=== PATIENT | male | born 1960 | race Caucasian/White ===

== ENCOUNTER 2023-05-19 13:39 | Outpatient (OUT) | payer OTHER, SELFPAY ==
--- NOTE | 2023-05-19 15:07 | P.CN_ITS ---
Consult Note: HPI Data of Consult Patient: new to practice Consult date: 05/19/23 Requesting Physician: Aniket Mcgowan MD Primary Care Provider: JESSI WILLIAM Consult Narrative Reason for consult: Bilateral upper extremity pain, numbness and tingling Narrative: this is a pleasant 63-year-old gentleman who presents for evaluation. He notes progressively worsening pain and numbness and tingling into the bilateral upper extremities. This is been ongoing for years, but continues to worsen. He recently completed physical therapy for six weeks, which did not provide lasting relief. He utilizes tliz-xra-shdnhrm pain medicines as needed, but this does not provide relief. he underwent cervical MRI, which is significant for multilevel stenosis, worst at C5/6 and C6-C7. He otherwise denies medication side effects loss of bowel or bladder control. cc:: CC: Aniket Mcgowan MD Review of Systems ROS Status of ROS 10 or more systems reviewed and unremarkable except as noted in history and below Exam Constitutional Common normals: no apparent distress, oriented x3 and healthy appearing Neck & C-Spine Other: mild tenderness to palpation throughout the cervical spine and paraspinal muscles which are. Strength is noted to be unremarkable throughout bilateral upper extremities. Sensation noted to be unremarkable throughout the bilateral upper extremities except for dysesthesia into the bilateral C5, C6, C7 d ermatomal distributions. Coordination remains intact. Gait remains nonantalgic. Respiratory Common normals: normal respiratory effort Effort & inspection: able to speak in complete sentences Extremity Common normals: normal to inspection Neuro Common normals: oriented x3, CN's II-XII intact bilaterally and no focal motor deficits Psych Common normals: mental status grossly normal and cooperative Assessment and Plan Assessment and Plan (1) Cervical stenosis of spinal canal: (2) Cervical radiculopathy: (3) Cervical disc displacement: Plan this is a pleasant 63-year-old gentleman who presents for evaluation. He has failed physical and medical modalities, as above. his cervical imaging was reviewed, as noted above. Given his symptomatology and imaging findings, coupled with his failure to respond to physical therapy for six weeks, it is prudent to attempt bilateral C5-C6 transfemoral epidural steroid injections to provide analgesia. Depending on his response, he may benefit from bilateral C6-C7 transforaminal epidural steroid injection. He is in agreement with this plan. Medications were reviewed. I will have him trial gabapentin 300 mg daily at bedtime. He expressed understanding. He will follow-up after the procedure is completed.
== END 2023-05-19 13:40 | disposition home or self-care (01) ==
PROVIDERS: PCP Family Medicine; Visit Provider Anesthesiology
DX: M54.12 Radiculopathy, cervical region (principal); M50.20 Other cervical disc displacement, unspecified cervical region; M48.02 Spinal stenosis, cervical region
CPT/HCPCS: G0463

== ENCOUNTER 2023-06-02 10:22 | Day surgery (SDC) | payer OTHER, SELFPAY ==
[2023-06-02 11:00] VITALS: BP 134/88; PULSE 98; RESP 16; TEMP 36.2; O2SAT 95
[2023-06-02 11:39] VITALS: BP 134/88; PULSE 98; RESP 18; O2SAT 98
[2023-06-02] MEDS: BUPIVACAINE HCL 0.25% PF 25 MG/10 ML VIAL 2 ML INJ (11:42)
[2023-06-02] MEDS: DEXAMETHASONE SODIUM PHOSPHATE 10 MG/ML VIAL INJ (11:43)
[2023-06-02] MEDS: IOHEXOL 240 MG/ML - 10 ML VIAL INJ (11:43)
[2023-06-02] MEDS: LIDOCAINE HCL 2% PF 100 MG/5 ML VIAL 3 ML INJ (11:43)
[2023-06-02 11:44] VITALS: BP 124/66; PULSE 80; RESP 20; O2SAT 96
--- NOTE | 2023-06-02 11:46 | W.PM.PROCNOT ---
Date of procedure: 06/02/23 Pre-op diagnosis: M54.12 Post-op diagnosis: same as pre-op Procedure: Procedure: Bilateral C5-6 transforaminal epidural steroid injection Medications: Bupivacaine 0.25% 3cc, dexamethasone 10mg The patient was seen and examined in the preoperative holding area.? Informed consent was obtained and placed on the chart.? Patient was brought to the medical procedure unit and placed in the prone position where a timeout was completed verifying the correct patient, procedure site, position, and planned special equipment using sterile aseptic technique.? Under direct fluoroscopic visualization a 25-gauge Quincke tipped spinal needle was advanced at level left C5-6 to the designated neural foramen where contrast dye was injected to show adequate spread.? There was no evidence of vascular or adverse uptake.? Epidural spread was appreciated.? The above-mentioned injectate was then placed in a 1.5 mL aliquot preceded by negative aspiration.? The needle was removed. The same procedure, at the same level, was completed on the opposite side. ? Patient was taken to the postprocedural recovery area and monitored for an appropriate length of time before found suitable for discharge in the accompaniment of a responsible adult. Anesthesia: Local Surgeon: Aniket Mcgowan Pathology: none sent Condition: stable Disposition: no change
== END 2023-06-02 11:50 | disposition home or self-care (01) ==
PROVIDERS: PCP Family Medicine; Visit Provider Anesthesiology
DX: M54.12 Radiculopathy, cervical region (principal)
CPT/HCPCS: 64479; 64480; J1100; Q9966

== ENCOUNTER 2023-06-16 07:56 | Day surgery (SDC) | payer OTHER, SELFPAY ==
[2023-06-16 08:18] VITALS: BP 130/79; PULSE 73; RESP 14; TEMP 36.5; O2SAT 97
[2023-06-16] MEDS: BUPIVACAINE HCL 0.25% PF 25 MG/10 ML VIAL INJ (08:55)
[2023-06-16] MEDS: LIDOCAINE HCL 2% PF 100 MG/5 ML VIAL INJ (08:56)
[2023-06-16] MEDS: IOHEXOL 240 MG/ML - 10 ML VIAL INJ (08:56)
[2023-06-16] MEDS: DEXAMETHASONE SODIUM PHOSPHATE 10 MG/ML VIAL INJ (08:56)
--- NOTE | 2023-06-16 08:58 | W.PM.PROCNOT ---
Date of procedure: 06/16/23 Pre-op diagnosis: M54.12 Post-op diagnosis: same as pre-op Procedure: Procedure: Bilateral C6-7 transforaminal epidural steroid injection Medications: Bupivacaine 0.25% 2cc, dexamethasone 10mg The patient was seen and examined in the preoperative holding area.? Informed consent was obtained and placed on the chart.? Patient was brought to the medical procedure unit and placed in the prone position where a timeout was completed verifying the correct patient, procedure site, position, and planned special equipment using sterile aseptic technique.? Under direct fluoroscopic visualization a 25-gauge Quincke tipped spinal needle was advanced at level left C6-7 to the designated neural foramen where contrast dye was injected to show adequate spread.? There was no evidence of vascular or adverse uptake.? Epidural spread was appreciated.? The above-mentioned injectate was then placed in a 1.5 mL aliquot preceded by negative aspiration.? The needle was removed. The same procedure, at the same level, was completed on the opposite side. ? Patient was taken to the postprocedural recovery area and monitored for an appropriate length of time before found suitable for discharge in the accompaniment of a responsible adult. Anesthesia: Local Surgeon: Aniket Mcgowan Pathology: none sent Condition: stable Disposition: no change
[2023-06-17 10:43] VITALS: BP 118/77; BP 121/76; PULSE 68; PULSE 71; RESP 18; O2SAT 95; O2SAT 98
== END 2023-06-16 09:01 | disposition home or self-care (01) ==
PROVIDERS: PCP Family Medicine; Visit Provider Anesthesiology
DX: M54.12 Radiculopathy, cervical region (principal)
CPT/HCPCS: 64479; 64634; J1100; Q9966

== ENCOUNTER 2023-07-02 07:49 | Outpatient (OUT) | payer OTHER, SELFPAY ==
--- NOTE | 2023-07-02 07:57 | PM.CN ---
Consult Note: HPI Data of Consult Patient: known to practice within the last 3 years Requesting Physician: Reyna Monreal NP Primary Care Provider: JESSI WILLIAM Consult Narrative Reason for consult: JOE f/u Narrative: Vinicio Mckay a pleasant 63 year old male presents for evaluation of chronic neck pain with radiculopathy. Patient recently underwent two bilateral TFESI, one at C5-6 the next at C6-7. As a result of the procedures the patient has noticed approximately 25% pain relief and functional improvement, pain is not as severe Today rating pain /10 Has been taking gabapentin 300mg HS with cc:: CC: Reyna Monreal NP Review of Systems ROS Status of ROS 10 or more systems reviewed and unremarkable except as noted in history and below Musculoskeletal Reports: neck pain PFSH PFSH Medical History Surgical History Meds Home Medications and Allergies Home Medications Medication Instructions Recorded Confirmed Type alprazolam 0.5 mg tablet 0.5 mg PO .hs 05/26/23 06/16/23 History aspirin 81 mg tablet,delayed 81 mg PO DAILY 05/26/23 06/16/23 History release bupropion HCl 150 mg tablet,12 hr 150 mg PO QDAY 05/26/23 06/16/23 History sustained-release gabapentin 300 mg capsule 300 mg PO .HS 05/26/23 06/16/23 History lisinopril 20 mg tablet 20 mg PO .QD 05/26/23 06/16/23 History magnesium 200 mg tablet 400 mg PO BID 05/26/23 06/16/23 History nitroglycerin 0.4 mg sublingual 0.4 mg sublingual Q5M 05/26/23 06/16/23 History tablet prasugrel 10 mg tablet 10 mg PO .QD 05/26/23 06/16/23 History rosuvastatin 20 mg tablet 10 mg PO .QD 05/26/23 06/16/23 History Allergies Allergy/AdvReac Type Severity Reaction Status Date / Time No Known Drug Allergies Allergy Verified 06/16/23 08:17 Exam Constitutional Documenting provider has reviewed patient's vital signs: yes Common normals: no apparent distress, oriented x3, healthy appearing, alert and well nourished General appearance: cooperative HENME Common normals: normocephalic, hearing grossly normal bilaterally and moist oral mucous membranes Head and scalp: normocephalic Eye Common normals: PERRL Pupil: PERRL Neck & C-Spine Common normals: full ROM General: normal visual inspection Cervical spine: pain with cervical ROM Chest Common normals: inspection of chest normal Respiratory Common normals: normal respiratory effort, no retractions and no use of accessory muscles Neuro Common normals: oriented x3, CN's II-XII intact bilaterally, moves all extremities, no focal motor deficits, no sensory deficits noted and deep tendon reflexes 2+ bilaterally Sensorium/orientation: alert Motor exam: strength 5/5 throughout and no movement abnormalities noted Other: severe numbness tingling to bilateral hands and fingers but greatly improved in bilateral arms and first two digits. Psych Common normals: mental status grossly normal, thought process normal, cooperative, affect normal, speech normal and activity/motor behavior normal Speech: normal speech Thought process: normal thought process Results Additional Findings Additional findings: MRI consistent with cervical stenosis with radiculopathy and symptom presentation patient failed PT I have checked an OAR[place] report on this patient today and there are no aberrancies noted in the prescribing history.?? A drug screen was completed and reviewed within the last year, and if there has not been a drug screen completed we ordered one today to monitor higher risk, state monitored pain medication use. As part of providing excellent, safe, comprehensive care, the following was completed at our patient's visit: 1. A medication reconciliation and review to ensure accurate knowledge of current/active medications, including asking our patients to inform us about any rbnu-fuq-kvwrqtl medications or herbal remedies/nutritional supplements/alternative remedies. 2. A review to specifically ensure our patients have had annual screening for: elevated body mass index (BMI), tobacco use, screening for depression, and screening for unhealthy alcohol use. When screening is concerning, patients are provided with education and the specific recommendation to discuss the concerning health issue and treatment options with their primary care provider. Assessment and Plan Assessment and Plan (1) Cervical radiculopathy: Assessment and Plan: Patient feels the series of epidurals increased functional improvement and provided >50% pain relief. Continues to have severe numbness and tingling in bilateral hands worse at the last two digits, first three digits greatly improved (2) Cervical disc displacement: (3) Cervical stenosis of spinal canal: (4) Chronic anticoagulation: (5) Obesity: Assessment and Plan: The patient was counseled that proper dietary changes and consistent participation in a home exercise plan can lead to weight loss. Weight loss can help to improve functionality in patients with chronic pain.? Plan increase gabapentin to 300mg BID for 2 weeks, if needed at that time increase to 300mg TID call for refills continue tylenol as needed patient considering chiropractor not interested in surgical consult continue HEP avoid NSAIDs with chronic blood thinners f/u 1 month to discuss medication titration, consider repeat JOE in the future
== END 2023-07-02 07:50 | disposition home or self-care (01) ==
LOC: PM 07:50
PROVIDERS: PCP Family Medicine; Visit Provider Nurse Practitioner
DX: M50.20 Other cervical disc displacement, unspecified cervical region (principal); M48.02 Spinal stenosis, cervical region; Z79.01 Long term (current) use of anticoagulants; E66.9 Obesity, unspecified
CPT/HCPCS: G0463

== ENCOUNTER 2023-07-31 07:26 | Outpatient (OUT) | payer OTHER, SELFPAY ==
--- NOTE | 2023-07-31 07:51 | P.CN_ITS ---
Consult Note: HPI Data of Consult Patient: known to practice within the last 3 years Requesting Physician: Reyna Monreal NP Primary Care Provider: JESSI WILLIAM Consult Narrative Reason for consult: JOE f/u Narrative: Vinicio Mckay a pleasant 63 year old male presents for evaluation of chronic cervical radiculopathy. Patient recently underwent two bilateral TFESI, one at C5-6 the next at C6-7. As a result of the procedures the patient has noticed approximately 50% pain relief and functional improvement, but continues to have moderate-severe radicular symptoms. Today rating pain 6-7/10 in bilateral arms and hands. Patient found no benefit from gabapentin 600mg-900mg daily and has been out of the medication for two days without worsening of symptoms. Patient is not interested in surgical consult and has not been seen by a chiropractor. cc:: CC: Reyna Monreal NP Review of Systems ROS Status of ROS 10 or more systems reviewed and unremarkable except as noted in history and below Musculoskeletal Reports: neck pain PFSH PFSH Medical History Anxiety ?F41.9 - Anxiety disorder, unspecified (ICD-10) Former smoker ?Z87.891 - Personal history of nicotine dependence (ICD-10) High cholesterol ?E78.00 - Pure hypercholesterolemia, unspecified (ICD-10) Hypertension ?I10 - Essential (primary) hypertension (ICD-10) Low back pain ?M54.50 - Low back pain, unspecified (ICD-10) Neck pain ?M54.2 - Cervicalgia (ICD-10) Osteoarthritis ?M19.90 - Unspecified osteoarthritis, unspecified site (ICD-10) Sleep apnea ?G47.30 - Sleep apnea, unspecified (ICD-10) Surgical History H/O heart artery stent ?Z95.5 - Presence of coronary angioplasty implant and graft (ICD-10) H/O lumbosacral spine surgery ?Z98.890 - Other specified postprocedural states (ICD-10) Meds Home Medications and Allergies Home Medications Medication Instructions Recorded Confirmed Type alprazolam 0.5 mg tablet 0.5 mg PO .hs 05/26/23 06/16/23 History aspirin 81 mg tablet,delayed 81 mg PO DAILY 05/26/23 06/16/23 History release bupropion HCl 150 mg tablet,12 hr 150 mg PO QDAY 05/26/23 06/16/23 History sustained-release gabapentin 300 mg capsule 300 mg PO .HS 05/26/23 06/16/23 History lisinopril 20 mg tablet 20 mg PO .QD 05/26/23 06/16/23 History magnesium 200 mg tablet 400 mg PO BID 05/26/23 06/16/23 History nitroglycerin 0.4 mg sublingual 0.4 mg sublingual Q5M 05/26/23 06/16/23 History tablet prasugrel 10 mg tablet 10 mg PO .QD 05/26/23 06/16/23 History rosuvastatin 20 mg tablet 10 mg PO .QD 05/26/23 06/16/23 History Allergies Allergy/AdvReac Type Severity Reaction Status Date / Time No Known Drug Allergies Allergy Verified 06/16/23 08:17 Exam Constitutional Documenting provider has reviewed patient's vital signs: yes Common normals: no apparent distress, oriented x3, healthy appearing, alert and well nourished General appearance: cooperative [facility] Common normals: normocephalic, hearing grossly normal bilaterally and moist oral mucous membranes Head and scalp: normocephalic Eye Common normals: PERRL Pupil: PERRL Neck & C-Spine Common normals: full ROM General: normal visual inspection Cervical spine: pain with cervical ROM Chest Common normals: inspection of chest normal Respiratory Common normals: normal respiratory effort, no retractions and no use of accessory muscles Neuro Common normals: oriented x3, CN's II-XII intact bilaterally, moves all extremities, no focal motor deficits, no sensory deficits noted and deep tendon reflexes 2+ bilaterally Sensorium/orientation: alert Motor exam: strength 5/5 throughout and no movement abnormalities noted Other: severe numbness tingling to bilateral hands and fingers but greatly improved in bilateral arms and first two digits. Psych Common normals: mental status grossly normal, thought process normal, cooperative, affect normal, speech normal and activity/motor behavior normal Speech: normal speech Thought process: normal thought process Results Additional Findings Additional findings: I have checked an [place]AR[place] report on this patient today and there are no aberrancies noted in the prescribing history.?? A drug screen was completed and reviewed within the last year, and if there has not been a drug screen completed we ordered one today to monitor higher risk, state monitored pain medication use. As part of providing excellent, safe, comprehensive care, the following was completed at our patient's visit: 1. A medication reconciliation and review to ensure accurate knowledge of current/active medications, including asking our patients to inform us about any mxeb-vyq-gcumyif medications or herbal remedies/nutritional supplements/alternative remedies. 2. A review to specifically ensure our patients have had annual screening for: elevated body mass index (BMI), tobacco use, screening for depression, and scr eening for unhealthy alcohol use. When screening is concerning, patients are provided with education and the specific recommendation to discuss the concerning health issue and treatment options with their primary care provider. Assessment and Plan Assessment and Plan (1) Cervical radiculopathy: Assessment and Plan: Patient feels the series of epidurals increased functional improvement and provided >50% pain relief. Continues to have severe numbness and tingling in bilateral hands worse at the last two digits, first three digits greatly improved (2) Cervical disc displacement: (3) Cervical stenosis of spinal canal: (4) Chronic anticoagulation: Assessment and Plan: educated to avoid NSAIDs (5) Obesity: Assessment and Plan: The patient was counseled that proper dietary changes and consistent participation in a home exercise plan can lead to weight loss. Weight loss can help to improve functionality in patients with chronic pain.? Plan stop gabapentin, start lyrica 100mg for one week then increase to lyrica 200mg daily patient requested methotrexate at today's visit. Educated on the purpose and risks of that medication and do not feel this would benefit him. continue tylenol as needed patient considering chiropractor not interested in surgical consult continue HEP avoid NSAIDs with chronic blood thinners f/u 1 month to evaluate medication regimen and discuss repeat cervical TFESI
== END 2023-07-31 07:27 | disposition home or self-care (01) ==
LOC: PM 07:38
PROVIDERS: PCP Family Medicine; Visit Provider Nurse Practitioner
DX: M48.02 Spinal stenosis, cervical region (principal); M50.10 Cervical disc disorder with radiculopathy, unspecified cervical region; Z79.01 Long term (current) use of anticoagulants; E66.9 Obesity, unspecified
CPT/HCPCS: G0463

== ENCOUNTER 2023-09-04 07:14 | Outpatient (OUT) | payer OTHER, SELFPAY ==
--- NOTE | 2023-09-04 07:41 | PM.CN ---
Consult Note: HPI Data of Consult Patient: known to practice within the last 3 years Requesting Physician: Reyna Monreal NP Primary Care Provider: JESSI WILLIAM Consult Narrative Reason for consult: JOE f/u Narrative: Vinicio Mckay a pleasant 63 year old male presents for evaluation of chronic cervical radiculopathy, noticed 50% improvement for 3 months from previous ESIs. Today rating pain 7/10 in bilateral arms and hands. Patient found no benefit from rotation to lyrica, however he does not always remember to take it. Patient would like to discuss additional options today. cc:: CC: Reyna Monreal NP Review of Systems ROS Status of ROS 10 or more systems reviewed and unremarkable except as noted in history and below PFSH PFS Medical History Anxiety ?F41.9 - Anxiety disorder, unspecified (ICD-10) Former smoker ?Z87.891 - Personal history of nicotine dependence (ICD-10) High cholesterol ?E78.00 - Pure hypercholesterolemia, unspecified (ICD-10) Hypertension ?I10 - Essential (primary) hypertension (ICD-10) Low back pain ?M54.50 - Low back pain, unspecified (ICD-10) Neck pain ?M54.2 - Cervicalgia (ICD-10) Osteoarthritis ?M19.90 - Unspecified osteoarthritis, unspecified site (ICD-10) Sleep apnea ?G47.30 - Sleep apnea, unspecified (ICD-10) Surgical History H/O heart artery stent ?Z95.5 - Presence of coronary angioplasty implant and graft (ICD-10) H/O lumbosacral spine surgery ?Z98.890 - Other specified postprocedural states (ICD-10) Meds Home Medications and Allergies Home Medications Medication Instructions Recorded Confirmed Type alprazolam 0.5 mg tablet 0.5 mg PO .hs 05/26/23 06/16/23 History aspirin 81 mg tablet,delayed 81 mg PO DAILY 05/26/23 06/16/23 History release bupropion HCl 150 mg tablet,12 hr 150 mg PO QDAY 05/26/23 06/16/23 History sustained-release lisinopril 20 mg tablet 20 mg PO .QD 05/26/23 06/16/23 History magnesium 200 mg tablet 400 mg PO BID 05/26/23 06/16/23 History nitroglycerin 0.4 mg sublingual 0.4 mg sublingual Q5M 05/26/23 06/16/23 History tablet prasugrel 10 mg tablet 10 mg PO .QD 05/26/23 06/16/23 History rosuvastatin 20 mg tablet 10 mg PO .QD 05/26/23 06/16/23 History pregabalin 200 mg capsule (Lyrica) 200 mg PO DAILY 07/31/23 07/31/23 History Allergies Allergy/AdvReac Type Severity Reaction Status Date / Time No Known Drug Allergies Allergy Verified 06/16/23 08:17 Exam Constitutional Documenting provider has reviewed patient's vital signs: yes Common normals: no apparent distress, oriented x3, healthy appearing, alert and well nourished General appearance: cooperative HENVT Common normals: normocephalic, hearing grossly normal bilaterally and moist oral mucous membranes Head and scalp: normocephalic Eye Common normals: PERRL Pupil: PERRL Neck & C-Spine Common normals: full ROM General: normal visual inspection Cervical spine: pain with cervical ROM Other: radiculopathy to bilateral hands following C5,6,7 dermatomal pattern. positive spurlings bilaterally. Chest Common normals: inspection of chest normal Respiratory Common normals: normal respiratory effort, no retractions and no use of accessory muscles Neuro Common normals: oriented x3, CN's II-XII intact bilaterally, moves all extremities, no focal motor deficits, no sensory deficits noted and deep tendon reflexes 2+ bilaterally Sensorium/orientation: alert Motor exam: strength 5/5 throughout and no movement abnormalities noted Other: severe numbness tingling to bilateral hands and fingers but greatly improved in bilateral arms and first two digits. Psych Common normals: mental status grossly normal, thought process normal, cooperative, affect normal, speech normal and activity/motor behavior normal Speech: normal speech Thought process: normal thought process Assessment and Plan Assessment and Plan (1) Cervical stenosis of spinal canal: (2) Cervical radiculopathy: Assessment and Plan: The patient has had over 3 months of moderate to severe cervical radiculopathy with functional impairment and inadequate response to conservative care including NSAIDS (unless there are contraindication such as concurrent blood thinners), multiple oral or topical pain medications, and home exercise program/physical therapy.? Patient has completed >6 weeks of guided home exercise program and/or formal physical therapy program without relief of their symptoms.? I have reviewed the imaging of the cervical spine and no red flags were identified.? The imaging reveals radiographic findings consistent with {[id number]}?cervical stenosis, cervical disc displacement We discussed the risks and benefits of the procedure with the patient, and we are NOT planning on using sedation as outlined in the guidelines from Medicare unless there is a documented reason that sedation would be strongly recommended.?? (3) Cervical disc displacement: (4) Chronic anticoagulation: Plan repeat bilateral C5-6 TFESI under fluoroscopy, 2 weeks later if continues to have radicular symptoms bilateral C6-7 TFESI increase pregablin to 300mg daily, can take HS as symptoms are the worst at night continue HEP as tolerated consider updating MRI, not interested in surgical evaluation at this time f/u 2 weeks after JOE
== END 2023-09-04 07:15 | disposition home or self-care (01) ==
LOC: PM 07:15
PROVIDERS: PCP Family Medicine; Visit Provider Nurse Practitioner
DX: M48.02 Spinal stenosis, cervical region (principal); M54.12 Radiculopathy, cervical region; M50.20 Other cervical disc displacement, unspecified cervical region; Z79.01 Long term (current) use of anticoagulants
CPT/HCPCS: G0463

== ENCOUNTER 2023-09-22 10:13 | Day surgery (SDC) | payer OTHER, SELFPAY ==
[2023-09-22 10:56] VITALS: BP 142/77; PULSE 91; RESP 14; TEMP 36.8; O2SAT 96
[2023-09-22 11:29] VITALS: BP 125/78; PULSE 90; RESP 18; O2SAT 93
[2023-09-22 11:31] VITALS: BP 120/73; PULSE 85; RESP 18; O2SAT 95
--- NOTE | 2023-09-22 11:32 | W.PM.PROCNOT ---
Date of procedure: 09/22/23 Pre-op diagnosis: M54.12 Post-op diagnosis: same as pre-op Procedure: Procedure: Bilateral C5-6 transforaminal epidural steroid injection Medications: Bupivacaine 0.25% 1cc, lidocaine 2% 1cc, dexamethasone 10mg The patient was seen and examined in the preoperative holding area.? Informed consent was obtained and placed on the chart.? Patient was brought to the medical procedure unit and placed in the prone position where a timeout was completed verifying the correct patient, procedure site, position, and planned special equipment using sterile aseptic technique.? Under direct fluoroscopic visualization a 25-gauge Quincke tipped spinal needle was advanced at level left C5-6 to the designated neural foramen where contrast dye was injected to show adequate spread.? There was no evidence of vascular or adverse uptake.? Epidural spread was appreciated.? The above-mentioned injectate was then placed in a 1.5 mL aliquot preceded by negative aspiration.? The needle was removed. The same procedure, at the same level, was completed on the opposite side. ? Patient was taken to the postprocedural recovery area and monitored for an appropriate length of time before found suitable for discharge in the accompaniment of a responsible adult. Anesthesia: Local Surgeon: Aniket Mcgowan Pathology: none sent Condition: stable Disposition: no change
[2023-09-22] MEDS: DEXAMETHASONE SOD PHOS 10 MG/ML VIAL INJ (11:33)
[2023-09-22] MEDS: BUPIVACAINE HCL 0.25% PF 25 MG/10 ML VIAL INJ (11:33)
[2023-09-22] MEDS: IOHEXOL 240 MG/ML - 10 ML VIAL 12 MG INJ (11:34)
[2023-09-22] MEDS: LIDOCAINE HCL 2% PF 100 MG/5 ML VIAL 2 ML INJ (11:34)
== END 2023-09-22 11:35 | disposition home or self-care (01) ==
PROVIDERS: PCP Family Medicine; Visit Provider Anesthesiology
DX: M54.12 Radiculopathy, cervical region (principal)
CPT/HCPCS: 64479; J1100; Q9966